=== PATIENT | male | born 1980 | race Caucasian/White ===

== ENCOUNTER 2017-03-28 20:03 | Emergency (ER) | payer BC ==
[2017-03-28] MEDS ORDERED: NACL 0.9% 1000 ML 1,000 ML IV ONE (21:00)
[2017-03-28] MEDS ORDERED: PEPCID IV ONE (21:00)
--- NOTE | 2017-03-28 21:14 | Emergency Department Report ---
ED General Adult HPI - General Chief complaint: Skin Rash Stated complaint: ALLERGY Time Seen by Provider: 03/28/17 20:57 Source: patient Mode of arrival: Ambulatory Limitations: No Limitations - History of Present Illness Initial comments: PT states he had eaten a slice of pizza and he was bitten by an ant. PT states that he developed a rash. PT states he took 2 tablets of otc Benadryl but the rash was worsening. PT states he is not having any trouble breathing. PT c/o itching. MD Complaint: rash -: Gradual, hour(s) (1) Location: head, face, neck, chest, back, abdomen, pelvis, buttocks, left, right , upper extremity, lower extremity Consistency: constant (itching ) Improves with: none Worsens with: other (gradually ) Associated Symptoms: denies other symptoms, rash. denies: chest pain, headaches , nausea/vomiting, shortness of breath - Related Data Previous Rx's Medication Instructions Recorded Last Taken Type EPINEPHrine [Epipen 2-William] 0.3 mg IM ONCE PRN #1 ml 03/28/17 Unknown Rx Famotidine [Pepcid] 20 mg PO BID #14 tablet 03/28/17 Unknown Rx hydrOXYzine PAMOATE [Vistaril] 25 mg PO Q6HR PRN #12 capsule 03/28/17 Unknown Rx methylPREDNISolone [Medrol] 4 mg PO DAILY #1 tab.ds.pk 03/28/17 Unknown Rx Allergies Allergy/AdvReac Type Severity Reaction Status Date / Time No Known Allergies Allergy Verified 09/13/14 08:31 ED Review of Systems ROS: Stated complaint: ALLERGY Other details as noted in HPI Comment: All other systems reviewed and negative ENT: other (denies swelling to throat ). denies: throat pain Respiratory: denies: shortness of breath, SOB with exertion, SOB at rest Cardiovascular: denies: chest pain, syncope Gastrointestinal: denies: vomiting Skin: rash ED Past Medical Hx - Past Medical History Hx Hypertension: No Hx Heart Attack/AMI: No Hx Liver Disease: No Hx Renal Disease: No Hx Sickle Cell Disease: No Hx Asthma: No Hx COPD: No Additional medical history: DIVERTICULITIS?--COLON INFLAMMATION - Surgical History Hx Pacemaker: No Hx Internal Defibrillator: No - Social History Smoking Status: Never Smoker Substance Use Type: None - Medications Home Medications: Home Medications Medication Instructions Recorded Confirmed Last Taken Type EPINEPHrine [Epipen 2-William] 0.3 mg IM ONCE PRN #1 ml 03/28/17 Unknown Rx Famotidine [Pepcid] 20 mg PO BID #14 tablet 03/28/17 Unknown Rx hydrOXYzine PAMOATE [Vistaril] 25 mg PO Q6HR PRN #12 capsule 03/28/17 Unknown Rx methylPREDNISolone [Medrol] 4 mg PO DAILY #1 tab.ds.pk 03/28/17 Unknown Rx ED Physical Exam - General Limitations: No Limitations General appearance: alert, in no apparent distress - Head Head exam: Present: atraumatic, normocephalic, normal inspection - Eye Eye exam: Present: normal appearance, PERRL, EOMI. Absent: conjunctival injection, nystagmus - ENT ENT exam: Present: normal exam, normal orophraynx, mucous membranes moist, normal external ear exam - Neck Neck exam: Present: normal inspection, full ROM - Respiratory Respiratory exam: Present: normal lung sounds bilaterally. Absent: respiratory distress, chest wall tenderness - Cardiovascular Cardiovascular Exam: Present: regular rate, normal rhythm, normal heart sounds - GI/Abdominal GI/Abdominal exam: Present: soft. Absent: tenderness - Extremities Exam Extremities exam: Present: full ROM. Absent: normal inspection (urticaria ) - Back Exam Back exam: Present: full ROM, rash noted. Absent: normal inspection, tenderness , CVA tenderness (R), CVA tenderness (L), muscle spasm, paraspinal tenderness, vertebral tenderness - Neurological Exam Neurological exam: Present: alert, oriented X3, normal gait - Psychiatric Psychiatric exam: Present: normal affect, normal mood - Skin Skin exam: Present: warm, dry, intact, rash, urticaria (difuse ). Absent: normal color ED Course Vital Signs 03/28/17 20:20 Temperature 98.6 F Pulse Rate 81 Blood Pressure 136/89 O2 Sat by Pulse 97 Oximetry - Reevaluation(s) Reevaluation #1: 03/28/17 21:15 PT aware of plan of care. No questions at this time. PT states he has a cousin who is allergic to ant bites. Reevaluation #2: 03/28/17 21:44 PT states his itching has improved. Rash beginning to fade. Will continue to monitor. Reevaluation #3: 03/28/17 22:37 PT states he if feeling better. Rash decreasing. Reviewed strict return precautions with pt. No questions at this time. - Pulse Oximetry Interpretation Digit-Finger Initial Pulse Oximetry Readin Actions Taken: none ED Medical Decision Making - Differential Diagnosis urticaria Critical Care Time: No Critical care attestation.: If time is entered above; I have spent that time in minutes in the direct care of this critically ill patient, excluding procedure time. ED Disposition Clinical Impression: Urticaria Disposition: - TO HOME OR SELFCARE Is pt being admited?: No Does the pt Need Aspirin: No Condition: Stable Instructions: Urticaria (ED) Additional Instructions: Do not drive or drink alcohol after taking Vistaril do no take Vistaril with Benadryl Follow up with PCP in 3-5 days, you may need outpatient allergy testing. Prescriptions: EPINEPHrine [Epipen 2-Iwlliam] 0.3 mg IM ONCE PRN #1 ml PRN Reason: Allergic Reaction Famotidine [Pepcid] 20 mg PO BID #14 tablet hydrOXYzine PAMOATE [Vistaril] 25 mg PO Q6HR PRN #12 capsule PRN Reason: Itching methylPREDNISolone [Medrol] 4 mg PO DAILY #1 tab.ds.pk Referrals: PRIMARY CARE, [Primary Care Provider] - 3-5 Days REJI THOMAS MD [Staff Physician] - 3-5 Days [facility] [Outside] - 3-5 Days Forms: Work/School Release Form(ED) Time of Disposition: 22:39
[2017-03-28 23:09] VITALS: BP 132/81
== END 2017-03-28 23:09 | disposition home or self-care (01) ==
LOC: ED 20:03
DX: L50.9 Urticaria, unspecified (principal)
CPT/HCPCS: 96361; 96374; 96375; 99282; J2930; J7030